=== PATIENT | male | born 1990 | race Asian ===

== ENCOUNTER 2017-08-03 19:56 | Emergency (ER) | payer OTHER ==
[~2017-08-03] VITALS: Ht 177.8 cm; Wt 92.9 kg
[2017-08-03 19:58] VITALS: BP 138/86
[2017-08-03] MEDS ORDERED: LIDOCAINE 2%, 20ML SQ ONE (20:30)
== END 2017-08-03 21:37 | disposition home or self-care (01) ==
LOC: ED 21:00
DX: S83.91XA Sprain of unspecified site of right knee, initial encounter (principal); S09.90XA Unspecified injury of head, initial encounter; V49.49XA Driver injured in collision with other motor vehicles in traffic accident, initial encounter; Y93.89 Activity, other specified; Y99.8 Other external cause status; Y92.410 Unspecified street and highway as the place of occurrence of the external cause
CPT/HCPCS: 70450; 99284